=== PATIENT | male | born 1945 | race Caucasian/White ===

== ENCOUNTER 2017-02-14 19:30 | Emergency (ER) | payer MEDICARE, OTHER ==
[~2017-02-14] VITALS: Ht 180.3 cm; Wt 103.0 kg
[~2017-02-14 19:30] MED LIST: ACTOS 45MG45 MG/TAB PO; ACTOS30 MG PO; ASPIRIN 81M81 MG/TA2 PO; ASPIRIN E.C. 8181 MG PO; DIABETA 5MG5 MG/TAB PO; GLUCOPHAGE1000 MG PO; GLYBURIDE5 MG PO; LIPITOR20 MG PO; LISINOPRIL5 MG PO; METFORMIN500 MG PO; METOPROLOL SUCC25 MG PO; PLAVIX 75MG TAB75 MG PO; PRINIVIL5 MG PO; TOPROL XL 25MG25 MG PO; ZOCOR 80MG80 MG PO
[2017-02-14 19:33] VITALS: TEMP 99
[2017-02-14 20:31] LABS: MEAN CELL VOLUME 87 fl (80.0-100.0); MEAN CORPUSCULAR HGB CONC 32 g/dl (33.0-37.0); MEAN PLATELET VOLUME 9.4 fl (7.4-10.4); PLATELET COUNT 375 K/mm3 (130-400); RED BLOOD COUNT 3.32 M/mm3 (4.20-5.60); REDCELL DISTRIBUTION WIDTH-CV 14.6 % (11.5-14.5); WHITE BLOOD COUNT 8.4 K/mm3 (4.8-10.8)
[2017-02-14 20:33] LABS: ADD PATHOLOGY DIFF REVIEW NO; HEMATOCRIT 28.8 % (42.0-52.0); HEMOGLOBIN 9.3 g/dl (13.5-18.0); MEAN CORPUSCULAR HEMOGLOBIN 28 pg (27.0-31.0)
[2017-02-14 20:35] LABS: INR 1.3 (0.8-3.0); PROTHROMBIN TIME 14.4 SECONDS (9.7-12.8)
[2017-02-14 20:38] LABS: PARTIAL THROMBOPLASTIN TIME 32.2 SECONDS (26.0-37.0)
[2017-02-14 20:44] LABS: ADJUSTED CALCIUM 9.7 mg/dL (8.4-10.2); ALBUMIN 3.4 gm/dL (3.5-5.0); CALCIUM 9.2 mg/dL (8.4-10.2); CREATININE, serum 1.09 mg/dL (0.66-1.25); TOTAL PROTEIN 6.3 gm/dL (6.4-8.2)
[2017-02-14 20:57] LABS: BAND 4 % (0-10); EOSINOPHIL 3 % (0-4); HYPOCHROMIA 1+; NEUTROPHILS 58 % (42.0-75.2); POLYCHROMASIA 1+; ROULEAUX 1+; TOTAL CELLS COUNTED 100
[2017-02-14 20:58] LABS: ANISOCYTOSIS 1+; MICROCYTOSIS 1+; POIKILOCYTOSIS 1+
[2017-02-14] MEDS ORDERED: ROXICODONE 55 MG/TAB PO (21:03)
[2017-02-14] MEDS ORDERED: HUMULIN 70/30 PE3 ML SQ (21:05)
[2017-02-14] MEDS ORDERED: LOPRESSOR 225 MG/TAB PO (21:07)
[2017-02-14] MEDS ORDERED: IMDUR 60MG60 MG/TAB PO (21:11)
[2017-02-14] MEDS ORDERED: EPA FISH OIL1 SGL PO (21:12)
[2017-02-14] MEDS ORDERED: COZAAR 25MG25 MG/TAB PO (21:13)
[2017-02-14] MEDS ORDERED: TESSALON P100 MG/CAP PO (21:13)
[2017-02-14] MEDS ORDERED: COLACE 100100 MG/CAP PO (21:14)
[2017-02-14] MEDS ORDERED: LASIX 40MG TABL40 MG PO (21:14)
[2017-02-14 21:32] LABS: TROPONIN-I 1.1 ng/mL (0.000-0.034)
[2017-02-14 23:20] VITALS: BP 119/52; PULSE 83
== END 2017-02-14 23:20 | disposition short-term general hospital (02) ==
LOC: COL.ER 19:30
PROVIDERS: Emergency Medicine
DX: J90 Pleural effusion, not elsewhere classified (principal); J98.11 Atelectasis; I25.10 Atherosclerotic heart disease of native coronary artery without angina pectoris; Z95.1 Presence of aortocoronary bypass graft; E11.9 Type 2 diabetes mellitus without complications; Z79.4 Long term (current) use of insulin

== ENCOUNTER 2017-02-21 17:56 | Emergency (ER) | payer MEDICARE, OTHER ==
[~2017-02-21] VITALS: Ht 180.3 cm; Wt 100.9 kg
[~2017-02-21 17:56] MED LIST changes: +COLACE 100100 MG/CAP PO; +COZAAR 25MG25 MG/TAB PO; +EPA FISH OIL1 SGL PO; +HUMULIN 70/30 PE3 ML SQ; +IMDUR 60MG60 MG/TAB PO; +LASIX 40MG TABL40 MG PO; +LOPRESSOR 225 MG/TAB PO; +ROXICODONE 55 MG/TAB PO; +TESSALON P100 MG/CAP PO
[2017-02-21 17:58] VITALS: BP 146/63; TEMP 98.6
[2017-02-21 19:52] LABS: BASO # 0.1 (0.0-0.2); BASO % 0.5 % (0.0-2.0); EOS # 0.2 (0.0-0.7); EOS % 2.1 % (0-4.0); GRAN # 6.9 (1.4-6.5); GRAN % 67.6 % (42.2-75.2); LYMPH # 2.2 (1.2-3.4); LYMPH % 21.8 % (20.0-51.0); MEAN CELL VOLUME 88 fl (80.0-100.0); MEAN CORPUSCULAR HGB CONC 32 g/dl (33.0-37.0); MEAN PLATELET VOLUME 9.3 fl (7.4-10.4); MONO # 0.8 (0.1-0.6); MONO % 7.4 % (1.7-9.3); PLATELET COUNT 566 K/mm3 (130-400); REDCELL DISTRIBUTION WIDTH-CV 14.2 % (11.5-14.5); WHITE BLOOD COUNT 10.2 K/mm3 (4.8-10.8)
[2017-02-21 19:53] LABS: HEMATOCRIT 31.6 % (42.0-52.0); HEMOGLOBIN 10.1 g/dl (13.5-18.0); MEAN CORPUSCULAR HEMOGLOBIN 28 pg (27.0-31.0)
[2017-02-21 19:56] LABS: INR 1.2 (0.8-3.0); PROTHROMBIN TIME 13.2 SECONDS (9.7-12.8)
[2017-02-21 20:22] VITALS: PULSE 92
== END 2017-02-21 20:23 | disposition home or self-care (01) ==
LOC: COL.ER 17:56
PROVIDERS: Emergency Medicine
DX: R04.0 Epistaxis (principal); I25.10 Atherosclerotic heart disease of native coronary artery without angina pectoris; Z95.1 Presence of aortocoronary bypass graft; Z79.02 Long term (current) use of antithrombotics/antiplatelets; Z79.82 Long term (current) use of aspirin

== ENCOUNTER 2017-02-25 22:41 | Emergency (ER) | payer MEDICARE, OTHER ==
[~2017-02-25] VITALS: Ht 180.3 cm; Wt 99.1 kg
[2017-02-25 22:46] VITALS: TEMP 97.1
[2017-02-25 23:04] LABS: BASO % 0.6 % (0.0-2.0); EOS # 0.2 (0.0-0.7); EOS % 3.2 % (0-4.0); LYMPH # 2.2 (1.2-3.4); LYMPH % 31.1 % (20.0-51.0); MEAN CELL VOLUME 88 fl (80.0-100.0); MEAN CORPUSCULAR HGB CONC 31 g/dl (33.0-37.0); MEAN PLATELET VOLUME 9.2 fl (7.4-10.4); MONO # 0.6 (0.1-0.6); MONO % 8.7 % (1.7-9.3); PLATELET COUNT 483 K/mm3 (130-400); RED BLOOD COUNT 3.78 M/mm3 (4.20-5.60); REDCELL DISTRIBUTION WIDTH-CV 14.1 % (11.5-14.5); WHITE BLOOD COUNT 7.2 K/mm3 (4.8-10.8)
[2017-02-25 23:05] LABS: HEMATOCRIT 33.4 % (42.0-52.0); HEMOGLOBIN 10.5 g/dl (13.5-18.0); MEAN CORPUSCULAR HEMOGLOBIN 28 pg (27.0-31.0)
[2017-02-25 23:13] LABS: ADJUSTED CALCIUM 9.4 mg/dL (8.4-10.2); ALBUMIN 4.2 gm/dL (3.5-5.0); BILIRUBIN,TOTAL 0.5 mg/dL (0.0-1.0); CALCIUM 9.6 mg/dL (8.4-10.2); CREATININE, serum 1.21 mg/dL (0.66-1.25); POTASSIUM 3.7 mmol/L (3.4-5.0); TOTAL PROTEIN 7.8 gm/dL (6.4-8.2)
[2017-02-26 01:29] VITALS: BP 132/70; PULSE 90
== END 2017-02-26 01:30 | disposition home or self-care (01) ==
LOC: COL.ER 22:41
PROVIDERS: Emergency Medicine
DX: E11.9 Type 2 diabetes mellitus without complications (principal); I25.10 Atherosclerotic heart disease of native coronary artery without angina pectoris; I10 Essential (primary) hypertension; Z79.82 Long term (current) use of aspirin; Z79.84 Long term (current) use of oral hypoglycemic drugs; Z79.4 Long term (current) use of insulin; Z95.1 Presence of aortocoronary bypass graft

== ENCOUNTER 2017-06-07 10:11 | Emergency (ER) | payer MEDICARE, OTHER ==
[~2017-06-07] VITALS: Ht 180.3 cm; Wt 98.2 kg
[2017-06-07 10:19] VITALS: BP 153/66; PULSE 79; TEMP 97.9
[2017-06-07] MEDS ORDERED: TOPROL XL 25MG25 MG PO (11:13)
[2017-06-07] MEDS ORDERED: LASIX 20MG TABL20 MG PO (11:14)
[2017-06-07] MEDS ORDERED: LIPITOR 10MG10 MG PO (11:14)
[2017-06-07] MEDS ORDERED: ACTOS 45MG45 MG/TAB PO (11:14)
[2017-06-07] MEDS ORDERED: LEVEMIR100 U/ML SQ (11:15)
[2017-06-07] MEDS ORDERED: PLAVIX 75MG TAB75 MG PO (11:15)
[2017-06-07] MEDS ORDERED: COZAAR 25MG25 MG/TAB PO ×2 (11:15→11:17)
[2017-06-07] MEDS ORDERED: IMDUR 30MG30 MG/TAB PO (11:15)
[2017-06-07] MEDS ORDERED: NOVOLOG 100U100 U/M1 SQ (11:16)
[2017-06-07] MEDS ORDERED: GLUCOPHAGE1000 MG PO (11:17)
[2017-06-07] MEDS ORDERED: PRINIVIL5 MG PO (11:17)
== END 2017-06-07 11:24 | disposition home or self-care (01) ==
LOC: COL.ER 10:11
DX: H11.31 Conjunctival hemorrhage, right eye (principal); I25.10 Atherosclerotic heart disease of native coronary artery without angina pectoris; E11.9 Type 2 diabetes mellitus without complications; I10 Essential (primary) hypertension; Z79.82 Long term (current) use of aspirin; Z79.02 Long term (current) use of antithrombotics/antiplatelets; Z79.4 Long term (current) use of insulin

== ENCOUNTER → 2017-10-07 | Outpatient (CLI) | payer MEDICARE, OTHER ==
[~2017-10-07] MED LIST changes: +IMDUR 30MG30 MG/TAB PO; +LASIX 20MG TABL20 MG PO; +LEVEMIR100 U/ML SQ; +LIPITOR 10MG10 MG PO; +NOVOLOG 100U100 U/M1 SQ
== END ==
LOC: COL.RAD 10:16
DX: M47.22 Other spondylosis with radiculopathy, cervical region (principal); M48.02 Spinal stenosis, cervical region; M25.512 Pain in left shoulder; M54.12 Radiculopathy, cervical region

== ENCOUNTER 2017-10-22 08:18 | Outpatient (CLI) | payer MEDICARE, OTHER ==
[~2017-10-22] VITALS: Ht 180.3 cm; Wt 97.5 kg
[2017-10-22 10:38] VITALS: BP 139/68; PULSE 78
== END 2017-10-22 10:25 | disposition home or self-care (01) ==
LOC: SDCO 08:18
DX: J90 Pleural effusion, not elsewhere classified (principal); I25.10 Atherosclerotic heart disease of native coronary artery without angina pectoris; Z95.1 Presence of aortocoronary bypass graft; Z88.8 Allergy status to other drugs, medicaments and biological substances; Z87.891 Personal history of nicotine dependence

== ENCOUNTER 2017-11-10 07:41 | Outpatient (CLI) | payer MEDICARE, OTHER ==
[~2017-11-10] VITALS: Ht 180.3 cm; Wt 99.0 kg
[2017-11-10] MEDS ORDERED: IMDUR 30MG30 MG/TAB PO (08:14)
[2017-11-10] MEDS ORDERED: LASIX 20MG TABL20 MG PO (08:19)
[2017-11-10] MEDS ORDERED: COZAAR 25MG25 MG/TAB PO (08:19)
[2017-11-10 08:25] VITALS: BP 155/69; PULSE 76; TEMP 97.7
[2017-11-10 08:27] VITALS: BP 153/81; PULSE 70
[2017-11-10 11:46] VITALS: BP 155/76; PULSE 72
== END 2017-11-10 09:55 | disposition home or self-care (01) ==
LOC: SDCO 07:41
DX: J90 Pleural effusion, not elsewhere classified (principal); I50.9 Heart failure, unspecified; E11.9 Type 2 diabetes mellitus without complications; Z79.01 Long term (current) use of anticoagulants; Z87.891 Personal history of nicotine dependence

== ENCOUNTER → 2018-02-01 | Outpatient (CLI) | payer MEDICARE, OTHER ==
[2018-02-01 09:15] LABS: BASO % 0.5 % (0.0-2.0); EOS # 0.2 (0.0-0.7); GRAN % 66.8 % (42.2-75.2); HEMATOCRIT 43.6 % (42.0-52.0); HEMOGLOBIN 14.2 g/dl (13.5-18.0); LYMPH # 1.7 (1.2-3.4); LYMPH % 21.9 % (20.0-51.0); MEAN CELL VOLUME 87 fl (80.0-100.0); MEAN CORPUSCULAR HEMOGLOBIN 28 pg (27.0-31.0); MEAN CORPUSCULAR HGB CONC 33 g/dl (33.0-37.0); MONO # 0.6 (0.1-0.6); MONO % 8.3 % (1.7-9.3); PLATELET COUNT 243 K/mm3 (130-400); REDCELL DISTRIBUTION WIDTH-CV 13.8 % (11.5-14.5)
[2018-02-01 09:16] LABS: C-REACTIVE PROTEIN 0.6 mg/dL (0.0-0.9); CALCIUM 9.7 mg/dL (8.4-10.2); CREATININE, serum 0.92 mg/dL (0.66-1.25); POTASSIUM 4.6 mmol/L (3.4-5.0)
== END ==
LOC: COL.LAB 08:31
PROVIDERS: Internal Medicine Pulmonary Disease
DX: R06.02 Shortness of breath (principal)

== ENCOUNTER 2018-06-06 11:08 | Emergency (ER) | payer MEDICARE, OTHER ==
[~2018-06-06] VITALS: Ht 180.3 cm; Wt 92.0 kg
[2018-06-06 11:16] VITALS: BP 133/68; TEMP 97.7
[2018-06-06] MEDS ORDERED: NORCO 325 MG-51 TAB PO (12:29)
[2018-06-06 13:00] VITALS: PULSE 65
== END 2018-06-06 13:00 | disposition home or self-care (01) ==
LOC: COL.ER 11:08
DX: S42.212A Unspecified displaced fracture of surgical neck of left humerus, initial encounter for closed fracture (principal); E11.9 Type 2 diabetes mellitus without complications; Z79.4 Long term (current) use of insulin; Z79.02 Long term (current) use of antithrombotics/antiplatelets; Z79.82 Long term (current) use of aspirin; W00.0XXA Fall on same level due to ice and snow, initial encounter; Y92.410 Unspecified street and highway as the place of occurrence of the external cause
CPT/HCPCS: J1170; J2405

== ENCOUNTER 2018-09-20 22:10 | Emergency (ER) | payer MEDICARE, OTHER ==
[~2018-09-20] VITALS: Ht 180.3 cm; Wt 97.7 kg
[~2018-09-20 22:10] MED LIST changes: +NORCO 325 MG-51 TAB PO
[2018-09-20 22:28] VITALS: TEMP 98.7
[2018-09-20 22:47] LABS: HEMATOCRIT 45.5 % (42.0-52.0); HEMOGLOBIN 14.9 g/dl (13.5-18.0); MEAN CELL VOLUME 87 fl (80.0-100.0); MEAN CORPUSCULAR HEMOGLOBIN 28 pg (27.0-31.0); MEAN CORPUSCULAR HGB CONC 33 g/dl (33.0-37.0); MEAN PLATELET VOLUME 9.9 fl (7.4-10.4); PLATELET COUNT 219 K/mm3 (130-400); RED BLOOD COUNT 5.25 M/mm3 (4.20-5.60); REDCELL DISTRIBUTION WIDTH-CV 13.2 % (11.5-14.5)
[2018-09-20 22:51] LABS: PROTHROMBIN TIME 11.7 SECONDS (9.7-12.8)
[2018-09-20 22:58] LABS: ALANINE AMINOTRANSFERASE 18 U/L (21-72); ALBUMIN 3.8 gm/dL (3.5-5.0); ALKALINE PHOSPHATASE 71 U/L (50-136); ANION GAP 9 mmol/L (7-16); AST,SGOT 17 U/L (15-37); BILIRUBIN,TOTAL 0.8 mg/dL (0.0-1.0); BLOOD UREA NITROGEN 26 mg/dL (9-20); CALCIUM 9.3 mg/dL (8.4-10.2); CARBON DIOXIDE 29 mmol/L (22-30); CHLORIDE 100 mmol/L (98-107); CREATININE, serum 0.99 mg/dL (0.66-1.25); GLUCOSE 287 mg/dL (74-106); POTASSIUM 4.5 mmol/L (3.4-5.0); SODIUM 137 mmol/L (137-145); TOTAL PROTEIN 6.7 gm/dL (6.4-8.2)
[2018-09-20 23:04] LABS: C-REACTIVE PROTEIN 0.5 mg/dL (0.0-0.9)
[2018-09-20 23:08] LABS: TROPONIN-I < 0.012 ng/mL (0.000-0.035)
[2018-09-20 23:27] LABS: BAND 12 % (0-10); LYMPHOCYTE 3 % (20.0-51.0); NEUTROPHILS 80 % (42.0-75.2); PLATELET ESTIMATE NORMAL (NORMAL)
[2018-09-21] MEDS ORDERED: NEURONTIN300 MG/CAP PO (00:22)
[2018-09-21] MEDS ORDERED: PERCOCET 325 MG1 TA2 PO (00:23)
[2018-09-21 05:36] VITALS: BP 117/53; PULSE 82
== END 2018-09-21 05:40 | disposition home or self-care (01) ==
LOC: COL.ER 22:10
PROVIDERS: Emergency Medicine
DX: M79.602 Pain in left arm (principal); I25.10 Atherosclerotic heart disease of native coronary artery without angina pectoris; E78.5 Hyperlipidemia, unspecified; I10 Essential (primary) hypertension; E11.9 Type 2 diabetes mellitus without complications; Z87.891 Personal history of nicotine dependence; Z95.1 Presence of aortocoronary bypass graft; Z79.02 Long term (current) use of antithrombotics/antiplatelets; Z79.4 Long term (current) use of insulin
CPT/HCPCS: J1885; J2405; J2930; J3010

== ENCOUNTER 2019-02-10 14:51 | Inpatient (IN) | payer MEDICARE, OTHER ==
[~2019-02-10] VITALS: Ht 180.3 cm; Wt 89.5 kg
[2019-02-10] VITALS (306 sets, daily range): BP systolic 116–118; BP diastolic 66–71; PULSE 87–94; TEMP 98.2; O2SAT 90–98
[~2019-02-10 14:51] MED LIST changes: +NEURONTIN300 MG/CAP PO; +PERCOCET 325 MG1 TA2 PO
[2019-02-10 15:24] LABS: BASO % 0.3 % (0.0-2.0); EOS # 0.1 (0.0-0.7); EOS % 0.8 % (0-4.0); GRAN # 6.2 (1.4-6.5); GRAN % 71.4 % (42.2-75.2); HEMOGLOBIN 14.3 g/dl (13.5-18.0); LYMPH # 1.6 (1.2-3.4); LYMPH % 18.5 % (20.0-51.0); MEAN CELL VOLUME 88 fl (80.0-100.0); MEAN CORPUSCULAR HEMOGLOBIN 29 pg (27.0-31.0); MEAN CORPUSCULAR HGB CONC 33 g/dl (33.0-37.0); MONO # 0.7 (0.1-0.6); MONO % 8.1 % (1.7-9.3); PLATELET COUNT 260 K/mm3 (130-400); REDCELL DISTRIBUTION WIDTH-CV 12.7 % (11.5-14.5)
[2019-02-10 15:35] LABS: ALANINE AMINOTRANSFERASE 15 U/L (21-72); ALBUMIN 4.1 gm/dL (3.5-5.0); ALKALINE PHOSPHATASE 79 U/L (50-136); ANION GAP 14 mmol/L (7-16); AST,SGOT 20 U/L (15-37); BILIRUBIN,TOTAL 0.9 mg/dL (0.0-1.0); BLOOD UREA NITROGEN 27 mg/dL (9-20); CALCIUM 9.4 mg/dL (8.4-10.2); CARBON DIOXIDE 23 mmol/L (22-30); CHLORIDE 94 mmol/L (98-107); CREATININE, serum 1.14 (0.66-1.25); POTASSIUM 4.7 mmol/L (3.4-5.0); SODIUM 131 mmol/L (137-145); TOTAL PROTEIN 6.9 gm/dL (6.4-8.2)
[2019-02-10 15:38] LABS: GLUCOSE 574 mg/dL (74-106)
[2019-02-10 15:47] LABS: TROPONIN-I < 0.012 ng/mL (0.000-0.035)
[2019-02-10 16:23] LABS: COLLECTION METHOD CLEAN CATCH
[2019-02-10 16:30] LABS: PH 5 (5-8); SQUAMOUS EPITHELIAL 0-2 /hpf; URINE APPEARANCE Clear; URINE BACTERIA None Seen /hpf; URINE BILIRUBIN Negative (NEGATIVE); URINE BLOOD 1+ (NEGATIVE); URINE COLOR Straw; URINE GLUCOSE 3+ (NEGATIVE); URINE KETONE Negative (NEGATIVE); URINE LEUKOCYTE ESTERASE Negative (NEGATIVE); URINE NITRATE Negative (NEGATIVE); URINE PROTEIN(semi-quant) Negative (NEGATIVE); URINE RBC 0-2 /hpf; URINE UROBILINOGEN Negative (NEGATIVE)
--- NOTE | 2019-02-10 18:45 | NUR ---
PATIENT ARRIVES TO ICU ROOM 3 VIA STRETCHER. HE IS ABLE TO TRANSFER HIMSELF TO ICU BED WITH NO DIFFICULTY. PATIENT ATTACHED TO CARDIO RESPIRATORY MONITOR AND EDUCATED ON HOW TO USE CALL LIGHT AND TO CALL FOR HELP WITH ANY NEEDS.
--- NOTE | 2019-02-10 19:10 | NUR ---
REPORT GIVEN TO ORION GUTIERREZ.
[2019-02-10] MEDS ORDERED: ASPIRIN 81M81 MG/TA2 PO (20:27)
[2019-02-11] VITALS (672 sets, daily range): BP systolic 98–142; BP diastolic 65–75; PULSE 61–75; TEMP 97.4–98; O2SAT 90–99
--- NOTE | 2019-02-11 03:15 | NUR ---
TANIA Acevedo notified of patient blood glucose remaining in acceptable level off of insulin gtt, ordered to d/c gtt
[2019-02-11 04:56] LABS: BASO # 0.1 (0.0-0.2); BASO % 0.6 % (0.0-2.0); EOS # 0.1 (0.0-0.7); EOS % 1.4 % (0-4.0); GRAN # 4.6 (1.4-6.5); GRAN % 59.1 % (42.2-75.2); HEMATOCRIT 38.2 % (42.0-52.0); HEMOGLOBIN 12.4 g/dl (13.5-18.0); LYMPH # 2.3 (1.2-3.4); LYMPH % 29.8 % (20.0-51.0); MEAN CELL VOLUME 89 fl (80.0-100.0); MEAN CORPUSCULAR HEMOGLOBIN 29 pg (27.0-31.0); MEAN CORPUSCULAR HGB CONC 33 g/dl (33.0-37.0); MEAN PLATELET VOLUME 9.7 fl (7.4-10.4); MONO # 0.6 (0.1-0.6); MONO % 8.2 % (1.7-9.3); PLATELET COUNT 228 K/mm3 (130-400); RED BLOOD COUNT 4.28 M/mm3 (4.20-5.60)
[2019-02-11 05:10] LABS: CALCIUM 8.5 mg/dL (8.4-10.2); CREATININE, serum 0.85 (0.66-1.25); MAGNESIUM 1.7 mg/dL (1.6-2.3); PHOSPHOROUS 4.5 mg/dL (2.5-4.5); POTASSIUM 3.8 mmol/L (3.4-5.0)
--- NOTE | 2019-02-11 07:15 | NUR ---
Bedside report recieved from ORION Rooney. Patient resting in bed and all questions asked answered. Patient assisted to order breakfast. MIVF infusing at ordered rate to uncomplicated RFA peripheral site. Care assumed at this time.
--- NOTE | 2019-02-11 07:30 | NUR ---
BLE duplex completed at bedside by tech at this time.
--- NOTE | 2019-02-11 09:40 | NUR ---
Dr. Redd rounds at this time. Orders as entered CPOE. POC to transfer patient to medical floor on telemetry. Care ongoing.
--- NOTE | 2019-02-11 12:45 | NUR ---
Patient transferred to medical room 351 with chart and all belongings sent with. Patient left sitting in recliner with call light in place. ORION aJmes notified of arrival. Care completed.
--- NOTE | 2019-02-11 13:00 | NUR ---
Pt arrived to room 351 from ICU. He is awake and A/Ox4. He is independent in room. He denies pain or discomfort. Saline lock to right FA is free of complications. Pt remains on room air, no dyspnea noted. Pt oriented to room and staff. Pt denies any other needs.
--- NOTE | 2019-02-11 18:03 | NUR ---
Pt has had an overall uneventful shift since arriving from ICU. He continues to be without needs.
--- NOTE | 2019-02-11 21:52 | NUR ---
Patient assessed at this time. Alert and oriented x 4, and able to make needs known. Reported pain to left shoulder/back area, rated as a 3. Denies wanting any medication at this time, but encouraged to let this nurse know when he wants medication, and voiced understanding. Peripheral IV to right forearm flushed. Site is without redness, warmth, swelling, and pain. Denies SOB, dyspnea, and cough. LS CTA. Respirations are even and unlabored. HRR. Denies chest pain and tightness. Telemetry in place. BSAx4. Abdomen soft and non-tender. No edema noted. Voices no questions, needs, or concerns at this time. Took a shower. In bed watching TV at this time. call light is within reach.
[2019-02-11 22:57] LABS: FACTOR V LEIDEN MUTATION B Negative (Negative); PARTIAL THROMBLASTIN TIME 30.2 seconds (25.0-35.0); PT G20210A MUTATION B Negative (Negative)
--- NOTE | 2019-02-11 23:30 | NUR ---
Given PRN Noco for pain to back/neck/left shoulder. Voices no other questions, needs, or concerns at this time. Resting in bed with call light within reach.
[2019-02-12 03:44] VITALS: BP 114/60; PULSE 65; TEMP 97.5
--- NOTE | 2019-02-12 05:43 | NUR ---
Patient has denied having pain and discomfort. Patient woke up and walked around medical/surgical floor. Stated the was having some minimal pain to left shoulder area. Denied wanting anything for pain. Given coffee as requested. BS 81. Sat and talked with patient for a while. Patient smiling and in a good mood this morning. Voices no questions, needs, or concerns at this time. Call light is within reach.
[2019-02-12 08:16] VITALS: BP 114/57; PULSE 74; TEMP 97.9
--- NOTE | 2019-02-12 09:23 | NUR ---
Pt is awake and A/Ox4, sitting up in bed. He denies pain or discomfort. Saline lock to right FA is free of complications. Pt remains on room air, denies any shortness of breath. Lungs are CTA. Pt is up in room and hallways independently. Pt denies any other needs.
[2019-02-12 09:28] LABS: BASO % 0.6 % (0.0-2.0); EOS # 0.1 (0.0-0.7); EOS % 0.9 % (0-4.0); GRAN # 5.1 (1.4-6.5); GRAN % 73.9 % (42.2-75.2); HEMATOCRIT 40.9 % (42.0-52.0); HEMOGLOBIN 13.2 g/dl (13.5-18.0); LYMPH # 1.2 (1.2-3.4); MEAN CELL VOLUME 89 fl (80.0-100.0); MEAN CORPUSCULAR HEMOGLOBIN 29 pg (27.0-31.0); MEAN CORPUSCULAR HGB CONC 32 g/dl (33.0-37.0); MEAN PLATELET VOLUME 9.8 fl (7.4-10.4); MONO # 0.4 (0.1-0.6); MONO % 5.7 % (1.7-9.3); PLATELET COUNT 238 K/mm3 (130-400)
[2019-02-12 10:02] LABS: CALCIUM 8.5 mg/dL (8.4-10.2); CREATININE, serum 0.7 (0.66-1.25); POTASSIUM 4.3 mmol/L (3.4-5.0)
[2019-02-12] MEDS ORDERED: ELIQUIS 5MG PO ×2 (11:06→11:13)
[2019-02-12] MEDS ORDERED: NOVLOG SQ (11:07)
[2019-02-12] MEDS ORDERED: NORCO 325 MG-51 TAB PO (11:08)
--- NOTE | 2019-02-12 11:52 | NUR ---
Plan: Patient plans to return home to [place]. DTR Anila Kong will assist CL with care support in her home. Assess: Patient reports that he resides with his DTR. Patient idnciated that his PCP is Yordan Jones and he obtains RX rosio [place]. Patient denies having a DPOA. Family is to transport home. Patient decl [facility]. Action: Edcuated on community resources. Nothing follows.
--- NOTE | 2019-02-12 13:33 | NUR ---
Pt was discharged home from hospital. All discharge instructions were reviewed with pt and sons in length, all questions answered. Medications were reviewed by pharmacist and RN. New prescriptions sent to pharm. Saline lock removed, catheter tip intact. Pt was escorted out of facility by staff.
[2019-02-14 08:20] LABS: ANTI-THROMBIN III 114 % (72-128)
[2019-02-14 08:21] LABS: PROTEIN C ACTIVITY 124 % (70-150)
[2019-02-15 13:42] LABS: LUPUS ANTICOAGULANT PT 10.8 sec (())
== END 2019-02-12 13:44 | disposition home or self-care (01) | DRG 176 ==
LOC: COL.ER 14:51 → ICU 17:19 → MEDICAL 02-11 13:13
PROVIDERS: Emergency Medicine; Physician Assistant; ADMIT Internal Medicine
DX: I26.99 Other pulmonary embolism without acute cor pulmonale (principal); I25.10 Atherosclerotic heart disease of native coronary artery without angina pectoris; E11.65 Type 2 diabetes mellitus with hyperglycemia; E78.5 Hyperlipidemia, unspecified; I25.2 Old myocardial infarction; Z95.1 Presence of aortocoronary bypass graft; Z85.46 Personal history of malignant neoplasm of prostate; Z90.79 Acquired absence of other genital organ(s); Z79.02 Long term (current) use of antithrombotics/antiplatelets; Z79.4 Long term (current) use of insulin; Z87.891 Personal history of nicotine dependence
CPT/HCPCS: 99223-AI; 99239; J1650; J1815; J7030; Q9967

== ENCOUNTER 2019-03-09 08:06 | Emergency (ER) | payer MEDICARE, OTHER ==
[~2019-03-09] VITALS: Ht 180.3 cm; Wt 88.6 kg
[~2019-03-09 08:06] MED LIST changes: +ELIQUIS 5MG PO; +NOVLOG SQ
[2019-03-09 08:12] VITALS: TEMP 96.8
[2019-03-09] MEDS ORDERED: OMNICEF 300MG300 MG PO (10:22)
[2019-03-09 10:43] VITALS: BP 136/61; PULSE 76
== END 2019-03-09 10:44 | disposition home or self-care (01) ==
LOC: COL.ER 08:06
DX: R04.0 Epistaxis (principal); E11.9 Type 2 diabetes mellitus without complications; I10 Essential (primary) hypertension; Z86.711 Personal history of pulmonary embolism; Z79.4 Long term (current) use of insulin; Z79.01 Long term (current) use of anticoagulants; Z79.82 Long term (current) use of aspirin

== ENCOUNTER 2019-03-10 00:03 | Emergency (ER) | payer MEDICARE, OTHER ==
[~2019-03-10] VITALS: Ht 180.3 cm; Wt 86.4 kg
[~2019-03-10 00:03] MED LIST changes: +OMNICEF 300MG300 MG PO
[2019-03-10 00:11] VITALS: TEMP 97.7
[2019-03-10 01:45] VITALS: BP 166/80; PULSE 89
== END 2019-03-10 01:45 | disposition home or self-care (01) ==
LOC: COL.ER 00:03
DX: R04.0 Epistaxis (principal); R51 Headache; Z79.01 Long term (current) use of anticoagulants

== ENCOUNTER 2019-06-12 18:32 | Emergency (ER) | payer MEDICARE, OTHER ==
[~2019-06-12] VITALS: Ht 180.3 cm; Wt 90.9 kg
[2019-06-12 18:47] VITALS: TEMP 97.6
[2019-06-12 19:32] LABS: BASO % 0.4 % (0.0-2.0); EOS # 0.1 (0.0-0.7); EOS % 1.5 % (0-4.0); GRAN % 65.3 % (42.2-75.2); HEMATOCRIT 42.4 % (42.0-52.0); HEMOGLOBIN 13.6 g/dl (13.5-18.0); LYMPH # 2.2 (1.2-3.4); LYMPH % 24.1 % (20.0-51.0); MEAN CELL VOLUME 89 fl (80.0-100.0); MEAN CORPUSCULAR HEMOGLOBIN 29 pg (27.0-31.0); MEAN CORPUSCULAR HGB CONC 32 g/dl (33.0-37.0); MEAN PLATELET VOLUME 10.1 fl (7.4-10.4); MONO # 0.8 (0.1-0.6); MONO % 8.2 % (1.7-9.3); PLATELET COUNT 231 K/mm3 (130-400); RED BLOOD COUNT 4.78 M/mm3 (4.20-5.60); REDCELL DISTRIBUTION WIDTH-CV 13.2 % (11.5-14.5)
[2019-06-12 19:59] LABS: INR 1.2 (0.8-3.0); PROTHROMBIN TIME 14.1 SECONDS (9.7-12.8)
[2019-06-12 20:02] LABS: PARTIAL THROMBOPLASTIN TIME 34.5 SECONDS (26.0-37.0)
[2019-06-12 20:38] LABS: ALBUMIN 4.1 gm/dL (3.5-5.0); BILIRUBIN,TOTAL 0.4 mg/dL (0.0-1.0); CALCIUM 8.8 mg/dL (8.4-10.2); CREATININE, serum 1.11 (0.66-1.25); POTASSIUM 4.2 mmol/L (3.4-5.0); TOTAL PROTEIN 6.9 gm/dL (6.4-8.2)
[2019-06-12 20:49] LABS: TROPONIN-I 0.013 ng/mL (0.000-0.035)
[2019-06-12 23:14] VITALS: BP 124/66; PULSE 71
== END 2019-06-12 23:16 | disposition home or self-care (01) ==
LOC: COL.ER 18:32
PROVIDERS: Emergency Medicine
DX: R07.9 Chest pain, unspecified (principal); E11.9 Type 2 diabetes mellitus without complications; K20.9 Esophagitis, unspecified; E78.5 Hyperlipidemia, unspecified; Z86.718 Personal history of other venous thrombosis and embolism; Z86.711 Personal history of pulmonary embolism; Z79.82 Long term (current) use of aspirin; Z95.9 Presence of cardiac and vascular implant and graft, unspecified; Z79.4 Long term (current) use of insulin
CPT/HCPCS: C9113; Q9967

== ENCOUNTER 2019-12-27 14:22 | Emergency (ER) | payer MEDICARE ==
[~2019-12-27] VITALS: Ht 180.3 cm; Wt 96.4 kg
[2019-12-27 14:29] VITALS: TEMP 97.8
[2019-12-27] MEDS ORDERED: COREG 25MG25 MG/TAB PO (14:41)
[2019-12-27] MEDS ORDERED: COZAAR100 MG PO (14:43)
[2019-12-27 14:53] LABS: BASO % 0.4 % (0.0-2.0); EOS # 0.2 (0.0-0.7); GRAN # 4.9 (1.4-6.5); GRAN % 65.5 % (42.2-75.2); HEMATOCRIT 39.9 % (42.0-52.0); HEMOGLOBIN 12.8 g/dl (13.5-18.0); LYMPH # 1.8 (1.2-3.4); MEAN CELL VOLUME 88 fl (80.0-100.0); MEAN CORPUSCULAR HEMOGLOBIN 28 pg (27.0-31.0); MEAN CORPUSCULAR HGB CONC 32 g/dl (33.0-37.0); MEAN PLATELET VOLUME 10.4 fl (7.4-10.4); MONO # 0.6 (0.1-0.6); MONO % 7.6 % (1.7-9.3); PLATELET COUNT 250 K/mm3 (130-400); RED BLOOD COUNT 4.52 M/mm3 (4.20-5.60); REDCELL DISTRIBUTION WIDTH-CV 13.3 % (11.5-14.5)
[2019-12-27 14:58] LABS: INR 1.1 (0.8-3.0)
[2019-12-27] MEDS ORDERED: NOVOLOG 100U100 U/M1 SQ (15:04)
[2019-12-27 15:15] LABS: ALANINE AMINOTRANSFERASE 16 U/L (4-49); ALBUMIN 3.8 gm/dL (3.5-5.0); ALKALINE PHOSPHATASE 65 U/L (50-136); ANION GAP 9 mmol/L (7-16); AST,SGOT 18 U/L (15-37); BILIRUBIN,TOTAL 0.6 mg/dL (0.0-1.0); BLOOD UREA NITROGEN 33 mg/dL (9-20); CARBON DIOXIDE 23 mmol/L (22-30); CHLORIDE 104 mmol/L (98-107); CREATINE KINASE 84 U/L (55-170); CREATININE, serum 1.22 (0.66-1.25); GLUCOSE 343 mg/dL (74-106); LIPASE 100 U/L (23-300); POTASSIUM 4.6 mmol/L (3.4-5.0); SODIUM 135 mmol/L (137-145); TOTAL PROTEIN 7.1 gm/dL (6.4-8.2)
[2019-12-27 15:28] LABS: TROPONIN-I < 0.012 ng/mL (0.000-0.035)
[2019-12-27 18:05] VITALS: BP 150/68; PULSE 62
== END 2019-12-27 18:22 | disposition home or self-care (01) ==
LOC: COL.ER 14:22
PROVIDERS: Emergency Medicine
DX: R07.89 Other chest pain (principal); I11.0 Hypertensive heart disease with heart failure; I50.9 Heart failure, unspecified; E11.9 Type 2 diabetes mellitus without complications; Z79.01 Long term (current) use of anticoagulants; Z79.82 Long term (current) use of aspirin; Z79.4 Long term (current) use of insulin; Z95.9 Presence of cardiac and vascular implant and graft, unspecified; Z87.891 Personal history of nicotine dependence; Z86.718 Personal history of other venous thrombosis and embolism; Z86.711 Personal history of pulmonary embolism; Z85.46 Personal history of malignant neoplasm of prostate
CPT/HCPCS: Q9967

== ENCOUNTER 2020-01-18 09:36 | Day surgery (SDC) | payer MEDICARE ==
[2020-01-18] VITALS (17 sets, daily range): BP systolic 143–184; BP diastolic 66–93; PULSE 66–82; TEMP 98.1
[~2020-01-18] VITALS: Ht 180.3 cm; Wt 93.0 kg
[~2020-01-18 09:36] MED LIST changes: +COREG 25MG25 MG/TAB PO; +COZAAR100 MG PO
[2020-01-18] MEDS ORDERED: HCTZ 25MG TAB25 MG PO (09:55)
[2020-01-18 10:20] LABS: HEMATOCRIT 43.6 % (42.0-52.0); MEAN CELL VOLUME 87 fl (80.0-100.0); MEAN CORPUSCULAR HEMOGLOBIN 28 pg (27.0-31.0); MEAN CORPUSCULAR HGB CONC 32 g/dl (33.0-37.0); MEAN PLATELET VOLUME 9.7 fl (7.4-10.4); PLATELET COUNT 228 K/mm3 (130-400); REDCELL DISTRIBUTION WIDTH-CV 13.4 % (11.5-14.5)
[2020-01-18 10:26] LABS: PROTHROMBIN TIME 11.2 SECONDS (9.7-12.8)
[2020-01-18 10:29] LABS: CALCIUM 9.2 mg/dL (8.4-10.2); CREATININE, serum 0.99 (0.66-1.25); PARTIAL THROMBOPLASTIN TIME 32.9 SECONDS (26.0-37.0); POTASSIUM 4.6 mmol/L (3.4-5.0)
--- NOTE | 2020-01-18 12:18 | NUR ---
SEE MERGE DOCUMENTATION FOR MEDICATION ADMINISTRATION TIMES AND INTRA/POST PROCEDURE SEDATION ASSESSMENTS.
[2020-01-18] MEDS ORDERED: ELIQUIS 5MG PO (14:16)
[2020-01-18] MEDS ORDERED: TOPROL XL 50MG50 MG PO (14:19)
--- NOTE | 2020-01-18 19:45 | NUR ---
Patients daughter called regarding a time for discharge. RN told her around 2029.
--- NOTE | 2020-01-18 20:00 | NUR ---
Groin site looks well, soft to touch, no bleeding or new draingage, no hematoma. Patient walked around unit and did well. Groin site remained clean dry and intact. Gown and monitoring equipment removed as well as IV. Education was talked over with patient. Patient now waiting for daughter to come pick him up from hospital.
--- NOTE | 2020-01-18 20:40 | NUR ---
Patient's daughter arrived to pick patient up, patient has all his belongings and walked, gustavo SEARS, to front ER entrance where daughter is waiting. Education and all discharge information printed and given to patient.
== END 2020-01-18 20:40 | disposition home or self-care (01) ==
LOC: COL.CAR 09:36
PROVIDERS: Internal Medicine Cardiovascular Disease
DX: I25.110 Atherosclerotic heart disease of native coronary artery with unstable angina pectoris (principal); R94.39 Abnormal result of other cardiovascular function study; E11.9 Type 2 diabetes mellitus without complications; E78.5 Hyperlipidemia, unspecified; I10 Essential (primary) hypertension; G47.33 Obstructive sleep apnea (adult) (pediatric); Z85.46 Personal history of malignant neoplasm of prostate; Z95.0 Presence of cardiac pacemaker; Z88.8 Allergy status to other drugs, medicaments and biological substances
CPT/HCPCS: C1760; C1769; C1894; J1644; J2250; J3010; Q9967

== ENCOUNTER 2020-01-20 10:31 | Emergency (ER) | payer MEDICARE ==
[~2020-01-20] VITALS: Ht 180.3 cm; Wt 92.7 kg
[~2020-01-20 10:31] MED LIST changes: +HCTZ 25MG TAB25 MG PO; +TOPROL XL 50MG50 MG PO
[2020-01-20 10:32] VITALS: TEMP 96.8
[2020-01-20 10:59] LABS: ALBUMIN 3.8 gm/dL (3.5-5.0); CALCIUM 9.1 mg/dL (8.4-10.2); CREATININE, serum 1.34 (0.66-1.25); POTASSIUM 4.7 mmol/L (3.4-5.0)
[2020-01-20 11:02] LABS: BASO % 0.6 % (0.0-2.0); EOS # 0.2 (0.0-0.7); EOS % 2.2 % (0-4.0); GRAN # 5.1 (1.4-6.5); GRAN % 71.3 % (42.2-75.2); HEMATOCRIT 39.8 % (42.0-52.0); HEMOGLOBIN 12.8 g/dl (13.5-18.0); LYMPH # 1.2 (1.2-3.4); LYMPH % 17.3 % (20.0-51.0); MEAN CELL VOLUME 87 fl (80.0-100.0); MEAN CORPUSCULAR HEMOGLOBIN 28 pg (27.0-31.0); MEAN CORPUSCULAR HGB CONC 32 g/dl (33.0-37.0); MEAN PLATELET VOLUME 10.2 fl (7.4-10.4); MONO # 0.6 (0.1-0.6); MONO % 8.2 % (1.7-9.3); PLATELET COUNT 242 K/mm3 (130-400); RED BLOOD COUNT 4.57 M/mm3 (4.20-5.60); REDCELL DISTRIBUTION WIDTH-CV 13.6 % (11.5-14.5)
[2020-01-20 13:45] VITALS: BP 129/65; PULSE 60
== END 2020-01-20 13:47 | disposition home or self-care (01) ==
LOC: COL.ER 10:31
PROVIDERS: Family Medicine
DX: E86.1 Hypovolemia (principal); I95.9 Hypotension, unspecified; E11.9 Type 2 diabetes mellitus without complications; I25.10 Atherosclerotic heart disease of native coronary artery without angina pectoris; Z79.4 Long term (current) use of insulin; Z79.82 Long term (current) use of aspirin; Z87.891 Personal history of nicotine dependence
CPT/HCPCS: J7030; J7040; J7120